=== PATIENT | female | born 1945 | race Caucasian/White ===

== ENCOUNTER 2016-09-25 05:31 | Inpatient (IN) | payer MEDICARE, OTHER ==
[~2016-09-25] VITALS: Ht 154.9 cm; Wt 93.6 kg
[~2016-09-25 05:31] MED LIST: ATOR40TA28 PO; FURO20 PO; HYDR-305 PO; LOSA50TA37 PO; METF500T4 PO; RINGERS SOLUTION,LACTATED 1,000 ML IV ONE; SITA100 PO
[2016-09-25] MEDS ORDERED: CeFAZolin 2 GM/DEXTROSE 0 ML IV ONE (05:51)
[2016-09-25] MEDS ORDERED: RINGERS SOLUTION,LACTATED 1,000 ML IV ONE (05:51)
[2016-09-25] MEDS ORDERED: BUPIVACAINE HCL/PF 0.5% 30 ML VIAL ONE (06:31)
[2016-09-25] MEDS ORDERED: MICROFIBRILLAR COLLAGEN 1 GM PACKAGE TP ONE (06:31)
[2016-09-25] MEDS ORDERED: HEPARIN SODIUM 1000 UNITS/NS 500 ML ONE (06:31)
[2016-09-25] MEDS ORDERED: SODIUM CL IRRIG SOLN BAG 0 ML IRRIG ONE (06:32)
[2016-09-25 06:42] LABS: GLUCOSE COMMENT 1 Doctor Notified; GLUCOSE,POINT OF CARE 407 MG/DL (70-110)
[2016-09-25] MEDS ORDERED: CeFAZolin 2 GM/DEXTROSE 50 ML IV ONE (07:00)
[2016-09-25] MEDS ORDERED: RINGERS SOLUTION,LACTATED 1,000 ML IV SCH (07:00)
[2016-09-25 07:16] LABS: CALCIUM, TOTAL 8.7 mg/dL (8.8-10.5); CREATININE 0.95 mg/dL (0.60-1.30); POTASSIUM 4.3 mmol/L (3.5-5.1)
== END 2016-09-25 08:40 | disposition home or self-care (01) | DRG 560 ==
LOC: 4E 05:31
PROVIDERS: ADMIT Orthopaedic Surgery; ATTEND Orthopaedic Surgery
DX: T84.191A Other mechanical complication of internal fixation device of left humerus, initial encounter (principal); S42.302K Unspecified fracture of shaft of humerus, left arm, subsequent encounter for fracture with nonunion; X58.XXXD Exposure to other specified factors, subsequent encounter; I10 Essential (primary) hypertension; E11.9 Type 2 diabetes mellitus without complications; Y83.9 Surgical procedure, unspecified as the cause of abnormal reaction of the patient, or of later complication, without mention of misadventure at the time of the procedure; Y92.89 Other specified places as the place of occurrence of the external cause; Y93.89 Activity, other specified; Y99.8 Other external cause status
CPT/HCPCS: 82962; 83036; 93005; J0690; J1644; J3490; J7120

== ENCOUNTER 2016-11-25 04:20 | Emergency (ER) | payer MEDICARE, OTHER ==
[~2016-11-25] VITALS: Ht 162.6 cm; Wt 113.6 kg
[~2016-11-25 04:20] MED LIST changes: -RINGERS SOLUTION,LACTATED 1,000 ML IV ONE
[2016-11-25] MEDS ORDERED: PANT40TA25 PO (04:36)
[2016-11-25] MEDS ORDERED: CARV6 PO (04:36)
[2016-11-25] MEDS ORDERED: DSS100 PO (04:36)
[2016-11-25] MEDS ORDERED: HEPA500014 SQ (04:36)
[2016-11-25] MEDS ORDERED: AMLO-512 PO (04:36)
[2016-11-25] MEDS ORDERED: SENN-30 PO (04:36)
[2016-11-25] MEDS ORDERED: CEFE1PIG3 IV (04:36)
[2016-11-25] MEDS ORDERED: INSNOV SQ (04:36)
[2016-11-25] MEDS ORDERED: FURO20 PO (04:36)
[2016-11-25] MEDS ORDERED: ONDANSETRON HCL 4 MG/2 ML VIAL IVP ONE (04:45)
[2016-11-25] MEDS ORDERED: MORPHINE SULFATE 4 MG/ML SYRINGE IVP ONE (04:45)
[2016-11-25 05:01] LABS: BASOPHILS % (AUTO) 0.7 % (0.0-2.0); EOSINOPHILS % (AUTO) 2.9 % (1.0-6.0); HEMATOCRIT 29.4 % (36-46); HEMOGLOBIN 9.9 g/dL (12.0-16.0); LYMPHOCYTES # (AUTO) 1.8 K/uL (1.0-4.8); LYMPHOCYTES % (AUTO) 14.1 % (22.0-44.0); MEAN CORPUSCULAR HEMOGLOBIN 30.2 pg (26.0-34.0); MEAN CORPUSCULAR HGB CONC 33.6 G/dL (31.0-37.0); MEAN CORPUSCULAR VOLUME 90 fL (80-100); MONOCYTES # (AUTO) 1.2 K/uL (0.1-1.0); MONOCYTES % (AUTO) 8.9 % (2.0-9.0); NEUTROPHILS # (AUTO) 9.7 K/uL (1.8-7.7); NEUTROPHILS % (AUTO) 73.4 % (40.0-70.0); PLATELET COUNT (AUTO) 169 K/uL (150-450); RED BLOOD CELL COUNT(AUTO) 3.27 MIL/uL (4.00-5.20); RED CELL DISTRIBUTION WIDTH 14.3 % (11.5-14.5); WHITE BLOOD COUNT (AUTO) 13.2 K/uL (4.5-11.0)
[2016-11-25 05:05] LABS: ANION GAP 12 mmol/L (8-16); CALCIUM, TOTAL 8.9 mg/dL (8.8-10.5); CARBON DIOXIDE 25 mmol/L (22-29); CHLORIDE 99 mmol/L (98-107); CREATININE 5.81 mg/dL (0.60-1.30); GLOMERULAR FILTR. RATE CALC 7 mL/min (>60); POTASSIUM 4.2 mmol/L (3.5-5.1); SODIUM SERUM 136 mmol/L (136-145); UREA NITROGEN, BLOOD 28 mg/dL (7-18)
[2016-11-25 05:11] LABS: ALANINE AMINOTRANSFERASE 11 U/L (12-78); ALBUMIN 2.6 g/dL (3.4-5.0); ASPARTATE AMINOTRANSFERASE 12 U/L (15-37); BILIRUBIN,TOTAL 0.4 mg/dL (0.1-1.0); TOTAL PROTEIN, SERUM 6.6 g/dL (6.4-8.2)
[2016-11-25 05:14] LABS: LACTIC ACID < 0.3 mmol/L (0.4-2.0)
[2016-11-25 08:49] VITALS: BP 125/80
== END 2016-11-25 09:46 | disposition home or self-care (01) ==
LOC: EMS 04:22
DX: M25.512 Pain in left shoulder (principal); I13.11 Hypertensive heart and chronic kidney disease without heart failure, with stage 5 chronic kidney disease, or end stage renal disease; E11.22 Type 2 diabetes mellitus with diabetic chronic kidney disease; N18.6 End stage renal disease; I25.10 Atherosclerotic heart disease of native coronary artery without angina pectoris; K21.9 Gastro-esophageal reflux disease without esophagitis; D64.9 Anemia, unspecified; E78.00 Pure hypercholesterolemia, unspecified; Z95.1 Presence of aortocoronary bypass graft; Z99.2 Dependence on renal dialysis; Z79.4 Long term (current) use of insulin; Z87.39 Personal history of other diseases of the musculoskeletal system and connective tissue
CPT/HCPCS: 82962; 83605; 87040; 99285; J2270; J2405